=== PATIENT | female | born 1970 ===

== ENCOUNTER 2017-02-15 11:00 | Outpatient (CLI) | payer OTHER | END 2017-02-15 11:01 | disposition home or self-care (01) | LOC: SLR 11:00 | PROVIDERS: ATTEND Specialist | DX: G47.30 Sleep apnea, unspecified (principal); I10 Essential (primary) hypertension | CPT/HCPCS: 95810 ==

== ENCOUNTER 2017-03-01 11:00 | Outpatient (CLI) | payer OTHER | END 2017-03-01 11:01 | disposition home or self-care (01) | LOC: SLR 11:00 | PROVIDERS: ATTEND Specialist | DX: G47.33 Obstructive sleep apnea (adult) (pediatric) (principal) | CPT/HCPCS: 95811 ==